=== PATIENT | male | born 1945 | race Caucasian/White ===

== ENCOUNTER 2019-10-01 12:00 | Outpatient (CLI) | payer MEDICARE, OTHER, BC, SELFPAY ==
--- NOTE | ~2019-10-01 | XR_ITS ---
EXAMINATION: XR chest 2V DATE: 10/01/2019 13:19 INDICATION: Preoperative evaluation with cardiac risk factors of hypertension. TECHNIQUE: PA and lateral views of the chest were obtained. COMPARISON: None FINDINGS: Mild biapical pleural-parenchymal scarring. Likely nipple shadow projecting over the posterolateral l eft ninth rib. No other airspace opacities, pulmonary edema, pleural effusion or pneumothorax. The ca rdiomediastinal silhouette is normal. Mild to moderate thoracic spondylosis. IMPRESSION: 1. No acute cardiopulmonary disease. Reviewed, dictated and finalized at location A.
--- NOTE | 2019-10-01 12:57 | ECG_ITS ---
Measurements Intervals [place] Rate: 59 P: 31 VA: 154 QRS: -30 QRSD: 86 T: 38 QT: 394 QTc: 393 Interpretive Statements SINUS BRADYCARDIA DELAYED PRECORDIAL R/S TRANSITION BASELINE ARTIFACT- I, III, AVR, AVL, AVF BORDERLINE ECG Electronically Signed On 10-01-2019 16:05:36 CDT by Ricci Morales D.O.
[2019-10-01 13:39] LABS: Basophils Percent Auto 0.4 % (0.2-1.2); Eosinophils Absolute Auto 0.1 K/mm3 (0-0.3); Eosinophils Percent Auto 2.5 % (0-4.4); Hematocrit 38.8 % (42.0-52.0); Hemoglobin 13.2 g/dL (14.0-18.0); Immature Granulocyte Absolute 0.02 K/mm3 (0.00-0.031); Immature Granulocyte Percent A 0.4 % (0-0.5); Lymphocytes Absolute Auto 1.13 K/mm3 (0.9-3.2); Mean Corpuscular Hemoglobin 31.1 pg (26-34); Mean Corpuscular Volume 91.5 fl (80-100); Mean Platelet Volume 9.9 fl (7.4-10.4); Monocytes Absolute Auto 0.4 K/mm3 (0.1-0.6); Monocytes Percent Auto 7.4 % (2.6-8.5); Neutrophils Absolute Auto 3.5 K/mm3 (1.3-6.7); Neutrophils Percent Auto 67.3 % (45.5-73.1); Platelet Count Result 217 k/mm3 (150-375); Red Blood Count 4.24 M/mm3 (4.6-6.20); Red Cell Distribution Width 12.8 % (11.5-14.5); White Blood Count 5.1 K/mm3 (4.5-10.0)
[2019-10-01 13:59] LABS: Albumin Level 4.1 g/dL (3.5-5.1); Anion Gap 4 mmol/L (8-16); Blood Urea Nitrogen 20 mg/dL (9-20); Carbon Dioxide 33 mmol/L (22-30); Chloride 101 mmol/L (98-107); Estimated Glomerular Filt Rate > 60; Glucose 92 mg/dL (75-110); Potassium 4.8 mmol/L (3.4-5.0); Sodium 138 mmol/L (137-145)
[2019-10-01 14:36] LABS: Hemoglobin A1C 5.1 % (<5.7)
[2019-10-01 14:38] LABS: Urine Cotinine NEGATIVE
== END 2019-10-01 12:01 | disposition home or self-care (01) ==
PROVIDERS: PCP Nurse Practitioner Adult Health; Visit Provider Orthopaedic Surgery
DX: Z01.818 Encounter for other preprocedural examination (principal); M19.90 Unspecified osteoarthritis, unspecified site; J45.909 Unspecified asthma, uncomplicated; I10 Essential (primary) hypertension; R94.31 Abnormal electrocardiogram [ECG] [EKG]
CPT/HCPCS: 71046; 80048; 80307; 82040; 83036; 85025; 87070; 93005

== ENCOUNTER 2019-10-20 00:39 | Outpatient (CLI) | payer MEDICARE, OTHER, BC, SELFPAY ==
[2019-10-20 16:40] LABS: SARS-CoV-2 RNA PCR Negative
== END 2019-10-20 00:40 | disposition home or self-care (01) ==
LOC: ANHCOVIDDT 00:40
PROVIDERS: PCP Nurse Practitioner Adult Health; Visit Provider Orthopaedic Surgery
DX: Z01.812 Encounter for preprocedural laboratory examination (principal); Z20.828 Contact with and (suspected) exposure to other viral communicable diseases
CPT/HCPCS: 87635; C9803; U0003

== ENCOUNTER 2019-10-22 02:59 | Day surgery (SDC) | payer MEDICARE, OTHER, BC, SELFPAY ==
[2019-10-01 12:09] VITALS: BP 154/87; PULSE 71; RESP 16; TEMP 36.9; O2SAT 99; BMI 23.1
--- NOTE | 2019-10-20 13:33 | PM.IMHP ---
H&P: HPI History of Present Illness Date/Time: 10/20/19 13:33 <JOSE Aviles - Last Filed: 10/20/19 13:39> Chief complaint: OA Left Knee <JOSE Aviles - Last Filed: 10/20/19 13:39> Narrative: Nikolas Nina is a 73 year old male Patient of [facility] Contre[facility]. He presents today for a left total knee arthroplasty. He is very active 73-year-old male. Typically walks 7 miles a day for exercise. He has been taking Celebrex 200 mg twice daily for many years. He has had cortisone injections in the past which have not offered him much relief. He is not interested in any more nonsurgical treatment of his knee. He has reached to point where he would rather proceed with total knee arthroplasty. He has had ACL reconstruction in this knee in the past following trauma. <JOSE Aviles - Last Filed: 10/20/19 13:39> Review of Systems Review of Systems: All systems reviewed & are unremarkable except as noted in HPI and below <JOSE Aviles - Last Filed: 10/20/19 13:39> [facility] Past Medical History Medical History: Medical History (Updated 10/22/19 @ 08:27 by Hood Lopez DO) Asthma BPH (benign prostatic hyperplasia) History of skin cancer Hypertension Osteoarthritis TMJ (temporomandibular joint syndrome) <JOSE Aviles - Last Filed: 10/20/19 13:39> Surgical History Surgical History: Surgical History (Updated 10/22/19 @ 08:27 by Hood Lopez DO) History of tonsillectomy <JOSE Aviles - Last Filed: 10/20/19 13:39> Social History Social History: Social History Smoking status: Never smoker Substance use: never Living arrangements: with family Spiritual care concerns: No <JOSE Aviles - Last Filed: 10/20/19 13:39> Meds Home Medications and Allergies Home medications: Home Medications Medication Instructions Recorded Confirmed Type azelastine 1 spray INTRANASAL HS 10/01/19 10/01/19 History celecoxib 200 mg PO BID 10/01/19 10/01/19 History finasteride 5 mg PO QAM 10/01/19 10/01/19 History fluticasone propionate [Flovent 1 inh INHALATION QAM 10/01/19 10/01/19 History Diskus] hydrocortisone [Proctosol HC] 1 applic [place] DAILY PRN 10/01/19 10/01/19 History ipratropium bromide 2 spray INTRANASAL HS 10/01/19 10/01/19 History montelukast 10 mg PO HS 10/01/19 10/01/19 History sildenafil 50 mg PO DAILY PRN 10/01/19 10/01/19 History telmisartan 40 mg PO HS 10/01/19 10/01/19 History triamcinolone acetonide 1 applic DENTAL DAILY PRN 10/01/19 10/01/19 History <JOSE Aviles - Last Filed: 10/20/19 13:39> Allergies/Adverse reactions: Allergies Allergy/AdvReac Type Severity Reaction Status Date / Time No Known Allergies Allergy Unknown Verified 10/01/19 12:12 <JOSE Aviles - Last Filed: 10/20/19 13:39> Exam Narrative: Exam Narrative: 73-year-old male very alert pleasant in no distress. He is 5 ft 10 165 lb. He has a 7 in longitudinal incision along the lateral border of the knee. Range of motion is from 5-125 degrees. Has a positive 1+ Josh's. Normal stability to varus valgus stress. Moderate effusion. No pain with patellofemoral grind. No significant medial lateral joint line tenderness. Full range motion of the hip without discomfort, negative Stinchfield maneuver. 5/5 quad strength, normal sensation, skin is normal. 2+ dorsalis pedis and posterior tibial pulse. <JOSE Aviles - Last Filed: 10/20/19 13:39> HENMT: Head: normal to inspection <JOSE Aviles Last Filed: 10/20/19 13:39> Resp: Effort & Inspection: normal respiratory effort <JOSE Aviles Last Filed: 10/20/19 13:39> Cardio: Rate: regular rate <JOSE Aviles Last Filed: 10/20/19 13:39> Rhythm: regular rhythm <JOSE Aviles - Last Filed: 10/20/19 13:39> Assessment and Plan Additional Plan Patient has severe tricompartmental arthritis
[2019-10-22] VITALS (12 sets, daily range): BP systolic 115–148; BP diastolic 64–82; PULSE 72–94; RESP 14–20; TEMP 36.1–36.7; O2SAT 95–100
--- NOTE | ~2019-10-22 | XR_ITS ---
EXAMINATION: XR knee LT 2V DATE: 10/22/2019 16:20 INDICATION: Left knee arthroplasty. Postop. TECHNIQUE: 2 views of left knee were obtained. COMPARISON: None. FINDINGS: There is a total left knee arthroplasty in near-anatomic alignment with patellar resurfacin g. No fracture. There is gas in the knee joint and soft tissues, consistent with recent surgery. IMPRESSION: 1. Total left knee arthroplasty in near-anatomic alignment. Reviewed, dictated and finalized at location A.
--- NOTE | 2019-10-22 10:04 | WPDANESEPPF ---
Anes - Initial Pre Proc Eval Procedure: Operation Date: 10/22/19 12:00 Proposed Procedures p Left Total Knee Arthroplasty - Michele Zamorano MD Date/Time: 10/22/19 10:04 Surgeon: Michele Zamorano MD Pre Op Diagnosis: OA Left Knee Patient Data Age: 73 Gender: M Height: 1.79 m Weight: 74.3 kg Last Vital Signs Temp 36.9 C 10/01/19 12:09 Pulse 71 10/01/19 12:09 Resp 16 10/01/19 12:09 BP 154/87 H 10/01/19 12:09 Pulse Ox 99 10/01/19 12:09 Allergies Allergy/AdvReac Type Severity Reaction Status Date / Time No Known Allergies Allergy Unknown Verified 10/01/19 12:12 Home Medications Medication Instructions Recorded Confirmed Type azelastine 1 spray INTRANASAL 10/01/19 10/01/19 History celecoxib 200 mg PO BID 10/01/19 10/01/19 History finasteride 5 mg PO QAM 10/01/19 10/01/19 History fluticasone propionate [Flovent 1 inh INHALATION QA 10/01/19 10/01/19 History Diskus] hydrocortisone [Proctosol HC] 1 applic [place] DAILY PRN 10/01/19 10/01/19 History ipratropium bromide 2 spray INTRANASAL 10/01/19 10/01/19 History montelukast 10 mg PO 10/01/19 10/01/19 History sildenafil 50 mg PO DAILY PRN 10/01/19 10/01/19 History telmisartan 40 mg PO HS 10/01/19 10/01/19 History triamcinolone acetonide 1 applic DENTAL DAILY PRN 10/01/19 10/01/19 History Patient hx anesthesia problems: none Family hx anesthesia problems: none PMFSH Past Medical History Medical History (Updated 10/22/19 @ 08:27 by Hood Lopez DO) Asthma BPH (benign prostatic hyperplasia) History of skin cancer Hypertension Osteoarthritis TMJ (temporomandibular joint syndrome) Surgical History Surgical History (Updated 10/22/19 @ 08:27 by Hood Lopez DO) History of tonsillectomy Social History Social History Smoking status: Never smoker Substance use: never Living arrangements: with family Spiritual care concerns: No Anes - Eval Final PreProcedure Day of Procedure 10/22/19 10:04 Patient weight: normal Heart: regular rate and rhythm Lungs: clear to auscultation and normal air movement Airway: Mallampati scale class II Neurological: alert and oriented Last oral intake: >/= 8 hours ASA classification: III Emergent: no Anesthetic plan: proceed Anesthesia type and monitoring: general ETT and standard monitoring Informed Consent: The patient's anesthetic plan and its attendant risks and benefits were discussed with the patient/family/POA. Questions were solicited and answers provided to the satisfaction of the patient/family/POA.
[2019-10-22] MEDS: ACETAMINOPHEN 500 MG TABLET 1000 MG PO ×2 (10:42→20:35)
[2019-10-22] MEDS: LACTATED RINGERS 1,000 ML 30 ML IV CONT ×2 (10:42→16:20)
[2019-10-22] MEDS: TRANEXAMIC ACID 1,000MG/ISO100 1,000 MG/100 ML BAG 200 MG IVPB (10:52)
--- NOTE | 2019-10-22 11:37 | WPDHPUPDATE1 ---
History and Physical Update Update Date/Time: 10/22/19 11:37 History and Physical has been reviewed, including an updated exam of the patient. There are NO changes in the patient's condition. Risks, benefits, and alternatives have been discussed and questions answered. Patient agrees to proceed with procedure. Abrasion well healed.
[2019-10-22] MEDS: KETOROLAC 15 MG/ML VIAL (*BKC) IV PUSH (11:45)
[2019-10-22] MEDS: ceFAZolin 2 GM/D5W 50 ML 2 GM/50 ML BAG IVPB (12:09)
--- NOTE | 2019-10-22 12:09 | PM.PROC ---
Procedure Note - Detailed Date of procedure: 10/22/19 Pre-op diagnosis: OA Left Knee Surgeon: Michele Zamorano MD
--- NOTE | 2019-10-22 12:09 | PM.PNORT ---
Progress Note: A&P Additional Plan Wiggles toes. No numbness right foot. SNU placement in progress. Subjective Subjective Date/Time Seen: 10/22/19 12:09 Objective Data Vital Signs Vital Signs: Vital Signs - 24 hr 10/22/19 11:51 Temperature 36.7 C Pulse Rate 78 Respiratory Rate 18 Blood Pressure 148/82 H Pulse Oximetry 100 Intake/Output Intake/Output: Intake & Output 10/19/19 10/20/19 10/21/19 10/22/19 23:59 23:59 23:59 23:59 Intake Total 350 Balance 350 Meds/Results Medications: Active Medications Generic Name Dose Route Start Last Admin Trade Name Freq PRN Reason Stop Dose Admin Fentanyl Citrate 25 mcg 10/22/19 10:05 Sublimaze IV PUSH Q2M PRN Pain Lactated Ringer's 1,000 mls @ 30 mls/hr 10/22/19 08:30 10/22/19 10:42 Lr - Lactated Ringers Iv IV CONT 30 mls/hr .Q24H BURKE Administration Lactated Ringer's 1,000 mls @ 30 mls/hr 10/22/19 10:05 Lr - Lactated Ringers Iv IV CONT .Q24H BURKE Ondansetron HCl 4 mg 10/22/19 10:05 Zofran Inj IV PUSH ONCE PRN Nausea Labs Labs: Laboratory Results - last 24 hr 10/22/19 10:56 Blood Type B Negative Antibody Screen Negative
[2019-10-22] MEDS: ceFAZolin SODIUM 1 GM VIAL 3 GM IRRIGATION (13:03)
[2019-10-22] MEDS: ceFAZolin SODIUM 1 GM VIAL IV PUSH (15:11)
--- NOTE | 2019-10-22 17:55 | PM.PROC ---
Procedure Note - Detailed Date of procedure: 10/22/19 Pre-op diagnosis: OA Left Knee Posttraumatic osteoarthritis left knee Post-op diagnosis: same Procedure performed: Left total knee arthroplasty Description of procedure: Patient was brought to the operating room and general anesthesia was administered. He received 2 g of Ancef weight based vancomycin and 1 g of tranexamic acid preoperatively. The left leg was prepped draped usual fashion. Under anesthesia he had range of motion from about 5? from full extension with a mildly positive bounce test to 100? of flexion. Limb was exsanguinated tourniquet elevated to 250 mmHg. A 7 in longitudinal incision was made over the anterior aspect of his knee slightly medial to midline giving us an 8 cm skin bridge from his old lateral incision. A standard parapatellar arthrotomy was utilized. Infrapatellar and suprapatellar scar tissue was removed. He had extensive scarring of the entire knee joint presumably from his prior arthrotomy. The synovium was whitish and bland. The patella was somewhat deformed due to wear. It measured 25.5 mm in thickness. There was cut to 17 mm anticipating an 8.6 mm polyethylene patella component. His bone was on the softer side for a male 73 years old and I have mentioned to his that I would recommend that after a couple weeks we schedule a bone density test for him. A protector cap was placed on the patella. We took time to mobilize the quadriceps. The gutters were freed up and a subtotal synovectomy was performed to allow full excursion of the quadriceps.. A guide jeny was inserted down the femoral canal after aspiration of canal contents using the 5 degree valgus cutting bushing 9 mm of bone removed the distal femur. Next the tibial plateau was cut making this skim cut over the medial tibial plateau that removed about 7 or 8 mm laterally. This was made perpendicular to the axis of tibia. The skim cut did not quite get to the depth of the defect which was far posterior medial and predictably would not be under the tibial tray. Osteophytes removed from around the knee. We very carefully released only enough capsule to expose the medial and posterior medial tibial osteophyte as he did not have a significant varus contracture. Osteophytes removed around the femur. The PCL was released and the meniscal remnants excised. In extension the medial side was about 2 mm tighter than the lateral side. At 90? of flexion the medial cap was a tight 8 mm and the lateral gap was 12 mm. We set the tibial sizing guide to 5? of external rotation and we found that matched [place] line exactly. Posterior referencing pin was replaced and we applied the 72.5 vanguard cutting block and AP and chamfer cuts were made and this gave us a perfect fit for this size femur line to line medial to lateral and resting on the anterior cortex. A large posterior femoral osteophyte was removed at this point as it was remarkably large and would interfere with a trialing process. Ossifications were noted in the meniscus scar medially and in the infrapatellar fat pad which we debrided as much as possible. A 10 mm CR insert slid in into flexion with a little bit of play medially and laterally so I felt we had enough tibial resection and the alignment was confirmed. The tibial component was sized to a size 79 which fit line to line anteromedial to posterolateral. This was punched. There was still a fair amount of additional posterior medial osteophyte to removed from the tibia which was performed at this time. We did this conservatively since again he did not have a significant varus contracture. We trialed with a 10 insert and found that it was a little bit loose in flexion and we lacked a few degrees in extension. We therefore removed an additional 2 mm of bone from the distal femur in the chamber cuts revisited and carefully removed bone proximal to the posterior femoral condyles of the component at this time. We
[2019-10-22] MEDS: FAMOTIDINE 20 MG TABLET PO (20:36)
[2019-10-22] MEDS: TELMISARTAN 40 MG TABLET PO (20:36)
[2019-10-22] MEDS: MONTELUKAST SODIUM 10 MG TABLET PO (20:36)
[2019-10-22] MEDS: AZELASTINE HCL NASAL 0.1% 137 MCG/SPR 30 ML BTL 1 SPRAY NASAL (20:36)
[2019-10-22] MEDS: IPRATROPIUM NASAL SPRAY 0.06% 15 ML BOTTLE 2 SPRAY NASAL (20:37)
[2019-10-23] MEDS: SENNA/DOCUSATE SODIUM TABLET 2 TAB PO ×2 (00:06→08:59)
[2019-10-23] MEDS: oxyCODONE HCL (*CRX) 5 MG TAB IR PO ×3 (00:07→10:07)
[2019-10-23] MEDS: ACETAMINOPHEN 500 MG TABLET 1000 MG PO ×2 (02:03→08:58)
[2019-10-23 03:20] VITALS: BP 126/61; PULSE 73; RESP 20; TEMP 36.7; O2SAT 98
[2019-10-23 05:45] LABS: Add Urine Microscopic? YES; Appearance Urine Clear (Clear); Bilirubin Urine Negative (Negative); Blood Urine 1+ (Negative); Color Urine Straw (Yellow); Glucose Urine UA 3+ mg/dL (Negative); Ketones Urine Negative (Negative); Leukocyte Esterase Ur Negative LEU/UL (Negative); Mucus Urine Rare /lpf; Nitrate Urine Negative (Negative); Protein Urine Negative (Negative); Specific Grav Ur 1.011 (1.001-1.035); Squamous Epithelial Cell Urine Rare /hpf (Few); Urobilinogen Urine Negative mg/dL (<2.0)
[2019-10-23 05:53] LABS: Basophils Percent Auto 0.1 % (0.2-1.2); Eosinophils Percent Auto 0.3 % (0-4.4); Hematocrit 31.2 % (42.0-52.0); Hemoglobin 10.6 g/dL (14.0-18.0); Immature Granulocyte Absolute 0.05 K/mm3 (0.00-0.031); Immature Granulocyte Percent A 0.5 % (0-0.5); Lymphocytes Absolute Auto 0.87 K/mm3 (0.9-3.2); Lymphocytes Percent Auto 8.6 % (18.3-44.2); Mean Corpuscular Hemoglobin 31.1 pg (26-34); Mean Corpuscular Volume 91.5 fl (80-100); Mean Platelet Volume 10.1 fl (7.4-10.4); Monocytes Absolute Auto 0.6 K/mm3 (0.1-0.6); Monocytes Percent Auto 5.8 % (2.6-8.5); Neutrophils Absolute Auto 8.6 K/mm3 (1.3-6.7); Neutrophils Percent Auto 84.7 % (45.5-73.1); Platelet Count Result 209 k/mm3 (150-375); Red Blood Count 3.41 M/mm3 (4.6-6.20); Red Cell Distribution Width 12.3 % (11.5-14.5); White Blood Count 10.1 K/mm3 (4.5-10.0)
[2019-10-23 05:56] LABS: Anion Gap 1 mmol/L (8-16); Blood Urea Nitrogen 16 mg/dL (9-20); Calcium 8.4 mg/dL (8.4-10.2); Carbon Dioxide 29 mmol/L (22-30); Chloride 105 mmol/L (98-107); Estimated CRCL calculation 73 ml/min; Estimated Glomerular Filt Rate > 60; Glucose 122 mg/dL (75-110); Sodium 135 mmol/L (137-145)
[2019-10-23 06:29] LABS: Vitamin D 25 Hydroxy 31.7 ng/mL
--- NOTE | 2019-10-23 07:13 | PM.PNORT ---
Progress Note: A&P Additional Plan POD 1 alert min pain min. NVI wd-dry. has not been out of bed yet, was having some burning with urination-UA sent-neg, poss from florez cath during surg. labs-noted, pt doing very well, plan for him to do both PT sessions then home this afternoon Subjective Subjective Date/Time Seen: 10/23/19 07:13 Objective Data Vital Signs Vital Signs: Vital Signs - 24 hr 10/22/19 11:51 10/22/19 16:20 10/22/19 16:35 Temperature 36.7 C 36.1 C L Pulse Rate 78 94 94 Respiratory Rate 18 16 16 Blood Pressure 148/82 H 115/76 123/74 Pulse Oximetry 100 100 100 10/22/19 16:50 10/22/19 17:05 10/22/19 17:20 Temperature Pulse Rate 91 87 84 Respiratory Rate 18 14 14 Blood Pressure 129/75 132/80 135/80 Pulse Oximetry 100 96 95 10/22/19 17:32 10/22/19 17:35 10/22/19 17:50 Temperature 36.3 C L 36.3 C L Pulse Rate 85 83 84 Respiratory Rate 16 15 17 Blood Pressure 141/70 H 136/65 139/74 Pulse Oximetry 95 98 99 10/22/19 18:20 10/22/19 19:20 10/22/19 23:20 Temperature 36.5 C 36.5 C 36.3 C L Pulse Rate 73 76 72 Respiratory Rate 19 20 20 Blood Pressure 138/67 131/65 129/64 Pulse Oximetry 98 99 99 10/23/19 03:20 Temperature 36.7 C Pulse Rate 73 Respiratory Rate 20 Blood Pressure 126/61 Pulse Oximetry 98 Intake/Output Intake/Output: Intake & Output 10/20/19 10/21/19 10/22/19 10/23/19 23:59 23:59 23:59 23:59 Intake Total 550 640 Output Total 575 Balance 550 65 Meds/Results Medications: Active Medications Generic Name Dose Route Start Last Admin Trade Name Freq PRN Reason Stop Dose Admin Acetaminophen 1,000 mg 10/22/19 20:00 10/23/19 02:03 Tylenol Tablet PO 1,000 mg Q6H BURKE Administration Apixaban 2.5 mg 10/23/19 09:00 Eliquis PO 11/03/19 17:01 BID BURKE Azelastine HCl 1 spray 10/22/19 21:00 10/22/19 20:36 Astelin NASAL 1 spray HS [facility] Administration Bisacodyl 10 mg 10/22/19 17:35 Dulcolax Suppository RECTAL DAILY PRN Constipation Calcium Citrate 1 tablet 10/23/19 09:00 Calcitrate + Vit D Caplet PO BID [facility] Celecoxib 200 mg 10/23/19 08:00 Celebrex PO DAILY@0800 [facility] Diphenhydramine HCl 25 mg 10/22/19 17:35 Benadryl Inj IV PUSH Q6H PRN Itching Famotidine 20 mg 10/22/19 21:00 10/22/19 20:36 Pepcid PO 20 mg Q12HR [facility] Administration Finasteride 5 mg 10/23/19 09:00 Proscar PO QAM [facility] Cefazolin Sodium 1 gm in 50 mls @ 100 mls/hr 10/22/19 20:00 10/23/19 04:21 Ancef 1 Gm/D5w 50 Ml Pm IVPB 10/23/19 12:29 100 mls/hr Q8H BURKE Administration Vancomycin HCl 1,000 mg in 250 mls @ 250 mls/hr 10/23/19 00:00 10/23/19 01:24 Vancomycin 1,000 Mg/D5w 250 Ml IVPB 10/23/19 12:59 Infused Q12H [facility] Infusion Ipratropium [place] 2 spray 10/22/19 21:00 10/22/19 20:37 Atrovent Nasal [place] 0.06% NASAL 2 spray HS [facility] Administration Montelukast Sodium 10 mg 10/22/19 21:00 10/22/19 20:36 Singulair PO 10 mg HS [facility] Administration Morphine Sulfate 2 mg 10/22/19 17:35 Morphine Sulfate Inj (*Crx) IV PUSH Q2H PRN Breakthrough pain rated 4-6 Naloxone HCl 0.1 mg 10/22/19 17:35 Narcan IV PUSH Q2M PRN Opiate Reversal Non-Formulary Medication 1 inhalation 10/23/19 09:00 Fluticasone Propionate [Flovent Diskus] INHALATION 11/22/19 09:01 QAM [facility] Ondansetron HCl 4 mg 10/22/19 17:35 Zofran Inj IV PUSH Q4H PRN Nausea And Vomiting Oxycodone HCl 5 mg 10/22/19 17:35 10/23/19 05:56 Roxicodone Ir Tablet PO 5 mg Q4H [facility] Administration Oxycodone HCl 5 mg 10/22/19 17:35 Roxicodone Ir Tablet PO Q4HR PRN Pain Rated 4-6 Polyethylene Glycol 17 gm 10/23/19 09:00 Miralax PO QAM [facility] Senna/Docusate Sodium 2 tab 10/22/19 17:35 10/23/19 00:06 Senokot S Tablet PO 2 tab BID [facility] Administration Telmisartan 40 mg 10/22/19 21:00 10/22/19 20:36 Micardis
--- NOTE | 2019-10-23 07:18 | PM.DS ---
DS: Admitting Diagnosis Admitting Diagnosis Admitting Diagnosis: OA Left Knee DS: Summary Time Spent with Patient Time attestation: 73-year-old male who underwent left total knee arthroplasty by Dr. Zamorano on 10/21. underwent the procedure without complications.postoperatively been afebrile vital signs stable, neurovascularly he is intact his wound is dry and has a Mepilex dressing over top. Had some burning with urination immediately postop which was most likely the Rao catheter placement had urinalysis done which was negative. he is on Eliquis follow-up baby aspirin twice a day for DVT prophylaxis. On scheduled Tylenol as well as oxycodone 5 pain also on Celebrex once a day. He will be on MiraLax and Senokot for constipation as well. Patient is weight-bearing as tolerated. He will be discharged to home later today on 10/22. Patient was advised to keep the leg elevated for swelling knee but also to his exercises on regular basis. He has outpatient physical therapy starting next Sunday in our office. Patient was advised any questions or concerns once he goes home he should call the office otherwise see him at his appointment date. DS: Data Data Completed and Pending Labs on day of discharge: Labs from last 24 hours 10/23/19 10/23/19 10/23/19 05:24 05:24 05:24 WBC 10.1 H RBC 3.41 L Hgb 10.6 L Hct 31.2 L MCV 91.5 MCH 31.1 MCHC 34.0 RDW 12.3 Plt Count 209 MPV 10.1 Immature Gran % (Auto) 0.5 Neut % (Auto) 84.7 H Lymph % (Auto) 8.6 L [place] % (Auto) 5.8 Eos % (Auto) 0.3 Baso % (Auto) 0.1 L Lymph # (Auto) 0.87 L [place] # (Auto) 0.6 Eos # (Auto) 0.0 Baso # (Auto) 0.0 Abs Immat Gran (auto) 0.05 H Absolute Neuts (auto) 8.6 H Absolute Nucleated RBC 0.0 Nucleated RBC % 0.0 Sodium 135 L Potassium 4.0 Chloride 105 Carbon Dioxide 29 Anion Gap 1 L BUN 16 Creatinine 0.80 Estim Creat Clear Calc 73 Estimated GFR > 60 Glucose 122 H Calcium 8.4 Vitamin D 25-Hydroxy 31.7 Urine Color Urine Appearance Urine pH Ur Specific [place] Urine Protein Urine Glucose (UA) Urine Ketones Ur Blood (Man) Urine Nitrate Urine Bilirubin Urine Urobilinogen Leukocyte Esterase Rfl Urine RBC Urine WBC Ur Squamous Epith Cells Urine Mucus Blood Type Antibody Screen 10/23/19 10/22/19 05:23 10:56 WBC RBC Hgb Hct MCV MCH MCHC RDW Plt Count MPV Immature Gran % (Auto) Neut % (Auto) Lymph % (Auto) B[place]so[place] % (Auto) Eos % (Auto) Baso % (Auto) Lymph # (Auto) [place] # (Auto) Eos # (Auto) Baso # (Auto) Abs Immat Gran (auto) Absolute Neuts (auto) Absolute Nucleated RBC Nucleated RBC % Sodium Potassium Chloride Carbon Dioxide Anion Gap BUN Creatinine Estim Creat Clear Calc Estimated GFR Glucose Calcium Vitamin D 25-Hydroxy Urine Color Straw Urine Appearance Clear Urine pH 6.0 Ur Specific [place] 1.011 Urine Protein Negative Urine Glucose (UA) 3+ H Urine Ketones Negative Ur Blood (Man) 1+ H Urine Nitrate Negative Urine Bilirubin Negative Urine Urobilinogen Negative Leukocyte Esterase Rfl Negative Urine RBC 3-5 H Urine WBC 4-6 H Ur Squamous Epith Cells Rare Urine Mucus Rare Blood Type B Negative Antibody Screen Negative Discharge Plan Discharge Patient Disposition: Home, Self-Care Discharge Instructions: ROSY ZAMORANO M.D [facility], [address] [address] POST-OPERATIVE DISCHARGE INSTRUCTIONS TOTAL KNEE ARTHROPLASTY 1. When resting, lie on back with leg elevated above hear to minimize swelling. Significant swelling could indicate a blood clot and if this occurs call the office (or go to the ER) to have a venous ultrasound. 2. Do exercise 5 times a day. 3. Do not sit w
[2019-10-23] MEDS: FINASTERIDE 5 MG TABLET PO (08:58)
[2019-10-23] MEDS: FAMOTIDINE 20 MG TABLET PO (08:58)
[2019-10-23] MEDS: APIXABAN 2.5 MG TABLET PO (08:59)
[2019-10-23] MEDS: polyethylene glycoL 3350 17 GM POWD.PACK PO (08:59)
[2019-10-23] MEDS: CELECOXIB 200 MG CAPSULE PO (08:59)
[2019-10-23 10:00] VITALS: BP 141/69; PULSE 73; RESP 14; TEMP 36.7; O2SAT 100
--- NOTE | 2019-10-23 10:54 | PM.IMCN ---
Assessment and Plan Assessment and plan (1) History of total knee arthroplasty: Code(s): Z96.659 - Presence of unspecified artificial knee joint Status: Acute Assessment and Plan: Postop day [address] Zamorano. Doing physical and occupational therapy well. Further evaluation and discharge by Orthopedic surgery. Cleared for discharge from my standpoint. (2) Dysuria: Code(s): R30.0 - Dysuria Status: Acute Assessment and Plan: Patient had dysuria after his surgery most likely from his Rao catheter. He is not having any other urinary symptoms but continues have some dysuria. UA showed no acute infection at this time. Explained to the patient could be from the trauma of the Rao and it should slowly improve over the next few days. Told him if it does not improve and he has changes in his urinary symptoms he is to calls primary care may need another urinalysis or follow-up with his urologist. Patient understands agrees the plan all questions answered. (3) BPH (benign prostatic hyperplasia): Code(s): N40.0 - Benign prostatic hyperplasia without lower urinary tract symptoms Status: Acute Assessment and Plan: Continue his BPH medications. (4) Hypertension: Code(s): I10 - Essential (primary) hypertension Status: Acute Assessment and Plan: Blood pressure has been stable since surgery. Continue medications. (5) Osteoarthritis: Code(s): M19.90 - Unspecified osteoarthritis, unspecified site Status: Acute Assessment and Plan: Continue medications prescribed by orthopedic surgery. HPI Data of Consult Consult date: 10/23/19 Requesting Physician: Michele Zamorano MD Primary Care Provider: Lindsey Contreras, PASSENGER SERVICE REPRESENTATIVE Consult Narrative Narrative: Nikolas Nina is a 73 year old male with history of BPH, hypertension, who presented as an outpatient for a left total knee arthroplasty by Dr. Zamorano. The patient was admitted after his surgery for continued monitoring and physical and occupational therapy. The patient states he has been dealing with left knee problems for years and has been gradually worsening. he has been on multiple medications to help with over time. He finally talked his primary care provider about seen an certified legal secretary specialist. He states Dr. Zamorano ordered x-rays on him and based on the results he offered to have a left total knee arthroplasty. The patient states after his surgery yesterday he was having some dysuria which has continued. He has not noticed any blood in his urine, urinary retention, frequent urination or any other symptoms. Is most likely secondary to his Rao catheter that was placed during surgery. A urinalysis was completed which showed no acute signs of an infection. He otherwise denies any chest pain, shortness of breath, cough, fever, chills, nausea, vomiting, abdominal pain, diarrhea, constipation, leg swelling, calf pain, lightheadedness, dizziness, headache, or any other symptoms at this time. Review of Systems Review of Systems: All systems reviewed & are unremarkable except as noted in HPI and below PMFSH Past Medical History Medical History (Updated 10/23/19 @ 16:12 by Cat Barnes PA-C) Asthma BPH (benign prostatic hyperplasia) History of skin cancer Hypertension Osteoarthritis TMJ (temporomandibular joint syndrome) Surgical History Surgical History (Updated 10/23/19 @ 16:09 by Cat Barnes PA-C) History of tonsillectomy Hx of total knee arthroplasty Social History Social History (Updated 10/23/19 @ 16:09 by Cat Barnes PA-C) Smoking status: Never smoker Alcohol intake: current Drinks per week: 2 Substance use: never Sub
--- NOTE | 2019-10-23 10:59 | PCOTNOTE ---
On 10/23/19, the student, Lona Delgado, provided care and [facility]. I have reviewed the student's documentation and agree with the findings.
--- NOTE | 2019-10-23 11:03 | WPDANESPN ---
Anes - Prog Note Post-Op Date/Time: 10/23/19 11:03 Cardiovascular status: normal Respiratory status: normal Airway patency: baseline Mental status: baseline Post-Op hydration status: normal Vital Signs: Last Vital Signs Temp 36.7 C 10/23/19 10:00 Pulse 73 10/23/19 10:00 Resp 14 10/23/19 10:00 BP 141/69 H 10/23/19 10:00 Pulse Ox 100 10/23/19 10:00 Pain Score (VAS): 4 I/O: Intake & Output 10/22/19 10/23/19 10/23/19 23:59 07:59 15:59 Intake Total 150 640 240 Output Total 575 Balance 150 65 240 Laboratory Tests 10/23/19 05:24 10/23/19 05:24 10/22/19 10/23/19 10/23/19 10:56 05:23 05:24 WBC RBC Hgb Hct MCV MCH MCHC RDW Plt Count MPV Immature Gran % (Auto) Neut % (Auto) Lymph % (Auto) [place] % (Auto) Eos % (Auto) Baso % (Auto) Lymph # (Auto) [place] # (Auto) Eos # (Auto) Baso # (Auto) Abs Immat Gran (auto) Absolute Neuts (auto) Absolute Nucleated RBC Nucleated RBC % Sodium Potassium Chloride Carbon Dioxide Anion Gap BUN Creatinine Estim Creat Clear Calc Estimated GFR Glucose Calcium Vitamin D 25-Hydroxy 31.7 Urine Color Straw Urine Appearance Clear Urine pH 6.0 Ur Specific [place] 1.011 Urine Protein Negative Urine Glucose (UA) 3+ H Urine Ketones Negative Ur Blood (Man) 1+ H Urine Nitrate Negative Urine Bilirubin Negative Urine Urobilinogen Negative Leukocyte Esterase Rfl Negative Urine RBC 3-5 H Urine WBC 4-6 H Ur Squamous Epith Cells Rare Urine Mucus Rare Blood Type B Negative Antibody Screen Negative 10/23/19 10/23/19 05:24 05:24 WBC 10.1 H RBC 3.41 L Hgb 10.6 L Hct 31.2 L MCV 91.5 MCH 31.1 MCHC 34.0 RDW 12.3 Plt Count 209 MPV 10.1 Immature Gran % (Auto) 0.5 Neut % (Auto) 84.7 H Lymph % (Auto) 8.6 L [place] % (Auto) 5.8 Eos % (Auto) 0.3 Baso % (Auto) 0.1 L Lymph # (Auto) 0.87 L [place] # (Auto) 0.6 Eos # (Auto) 0.0 Baso # (Auto) 0.0 Abs Immat Gran (auto) 0.05 H Absolute Neuts (auto) 8.6 H Absolute Nucleated RBC 0.0 Nucleated RBC % 0.0 Sodium 135 L Potassium 4.0 Chloride 105 Carbon Dioxide 29 Anion Gap 1 L BUN 16 Creatinine 0.80 Estim Creat Clear Calc 73 Estimated GFR > 60 Glucose 122 H Calcium 8.4 Vitamin D 25-Hydroxy Urine Color Urine Appearance Urine pH Ur Specific [place] Urine Protein Urine Glucose (UA) Urine Ketones Ur Blood (Man) Urine Nitrate Urine Bilirubin Urine Urobilinogen Leukocyte Esterase Rfl Urine RBC Urine WBC Ur Squamous Epith Cells Urine Mucus Blood Type Antibody Screen Post-procedural complaints: none Patient Feedback: Patient satisfied with anesthetic care.
== END 2019-10-23 14:01 | disposition home or self-care (01) ==
LOC: ANHSURGERY 10:14 → ANH2MED 17:37
PROVIDERS: Family Medicine; Physician Assistant Surgical; PCP Nurse Practitioner Adult Health; Visit Provider Orthopaedic Surgery
PROC: (CPT 27447; principal; 2019-10-22 12:00)
DX: M17.12 Unilateral primary osteoarthritis, left knee (principal); R30.0 Dysuria; N40.0 Benign prostatic hyperplasia without lower urinary tract symptoms; I10 Essential (primary) hypertension; J45.909 Unspecified asthma, uncomplicated
CPT/HCPCS: 27447; 36415; 73560; 80048; 81001; 82306; 85025; 86850; 86900; 86901; 97110; 97116; 97161; 97165; A9270; C1713; C1776; J0171; J0690; J1100; J1885; J2270; J2405; J2704; J2795; J3010; J3370; J7120

== ENCOUNTER 2019-12-24 09:00 | Outpatient (CLI) | payer MEDICARE, OTHER, BC, SELFPAY ==
--- NOTE | ~2019-12-24 | DEXA_ITS ---
Bone Density Report Name: Nikolas Nina Age: 74 Sex: Male Ethnicity: White Date of : 1945 Indication: cancer; asthma or emphysema;osteopenia on x-ray Referring Provider: ROSY COLEY Study: Bone densitometry was performed. Exam Date: December 24, 2019 Accession number: [id number] Bone Density: Region BMD T-score Z-score Classification AP Spine (L1-L4) 1.254 1.5 2.5 Normal Femoral Neck (Left) 0.702 -1.7 -0.4 Osteopenia Total Hip (Left) 0.944 -0.6 0.2 Normal Total Hip Bilateral Avg 0.958 -0.5 0.3 Normal Femoral Neck (Right) 0.813 -0.9 0.4 Normal Total Hip (Right) 0.971 -0.4 0.4 Normal World Health Organization criteria for BMD impression classify patients as: Normal (T-score at or above -1.0), Osteopenia (T-score between -1.0 and -2.5), or Osteoporosis (T-score at or below -2.5). 10-year Fracture Risk(1): Major Osteoporotic Fracture 6.7% Hip Fracture 2.0% Reported Risk Factors: [place] (), Neck BMD=0.702, BMI=23.3 (1) FRAX(R) Version 3.08. Fracture probability calculated for an untreated patient. Fracture probability may be lower if the patient has received treatment. Clinical Information Provided by Patient: Has used the following medications: Calcium Has the following medical conditions: Asthma or Emphysema, Cancer Patient maximum height was 72 Drinks caffeinated beverages Impression: The patient has low bone mass, based on the Left Femoral Neck T-score. The patient has an estimated ten-year risk of hip fracture of 2% and an estimated ten-year risk of major fracture of 6.7%, based on the WHO FRAX algorithm. Discussion: BONE DENSITY IS LOW AT ONE OR MORE SKELETAL SITES. This patient's lowest T-score is low at one or more skeletal sites. It meets the World Health Organization's (WHO) criteria for ?low bone mass? (T-score between -1.0 and -2.5). The patient's 10-year risk of fracture as calculated by FRAX is less than the threshold where pharmacological therapy is recommended by the National Osteoporosis Foundation (NOF). However, all treatment decisions require clinical judgment and consideration of individual patient factors, including patient preferences, comorbidities, previous drug use, risk factors not captured in the FRAX model (e.g., frailty, falls, vitamin D deficiency, increased bone turnover, interval significant decline in bone density) and possible under or overestimation of fracture risk by FRAX. The patient should follow a healthful lifestyle (good nutrition with adequate calcium and vitamin D, and appropriate weight-bearing exercise). Follow-Up: Consider repeating this study in 2 to 3 years to reassess this patient's status, or sooner if there is some new clinical indication. Reported by: [facility] on 12/24/2019 9:24:00 AM.
== END 2019-12-24 09:01 | disposition home or self-care (01) ==
PROVIDERS: PCP Nurse Practitioner Adult Health; Visit Provider Orthopaedic Surgery
DX: M85.852 Other specified disorders of bone density and structure, left thigh (principal)
CPT/HCPCS: 77080

== ENCOUNTER 2020-02-23 11:30 | Outpatient (NON) | payer MEDICARE, BC, OTHER, SELFPAY ==
[2020-02-23 21:25] LABS: SARS-CoV-2 RNA PCR Positive
== END 2020-02-23 11:31 ==
PROVIDERS: PCP Nurse Practitioner Adult Health; Visit Provider Family Medicine
DX: U07.1 COVID-19 (principal)
CPT/HCPCS: C9803; U0003; U0005

== ENCOUNTER → 2020-06-05 01:24 | Outpatient (CLI) | payer MEDICARE, BC, OTHER, SELFPAY ==
[2020-06-05 19:16] LABS: SARS-CoV-2 RNA PCR Negative
== END ==
PROVIDERS: PCP Nurse Practitioner Adult Health; Visit Provider Otolaryngology
DX: Z01.812 Encounter for preprocedural laboratory examination (principal); Z20.822 Contact with and (suspected) exposure to COVID-19
CPT/HCPCS: C9803; U0003; U0005

== ENCOUNTER 2020-06-08 00:50 | Day surgery (SDC) | payer MEDICARE, BC, OTHER, SELFPAY ==
[2020-06-02 11:26] VITALS: BMI 24.4
--- NOTE | 2020-06-07 06:37 | PM.HPGS ---
History of Present Illness History of Present Illness Consent: Risks, benefits, and alternatives have been discussed and questions answered. Patient agrees to proceed with procedure. Chief complaint: nasal septal deviation Narrative: Nikolas Nina is a 74 year old male With a chief complaint of inability to breathe out of his nose he has a markedly deviated septum Review of Systems Review of Systems: All systems reviewed & are unremarkable except as noted in HPI and below PMFSH Past Medical History Medical History Asthma BPH (benign prostatic hyperplasia) History of skin cancer Hypertension Osteoarthritis TMJ (temporomandibular joint syndrome) Surgical History Surgical History History of tonsillectomy Hx of total knee arthroplasty Social History Social History Smoking status: Never smoker Second hand tobacco smoke exposure: No Alcohol intake: current Drinks per week: 2 Substance use: never Substance use type: does not use Gender identity (if verbalized by the patient): Male Spiritual care concerns: No Meds Home Medications and Allergies Home Medications Medication Instructions Recorded Confirmed Type Flovent Diskus 1 inh INHALATION QAM 10/01/19 06/02/20 History azelastine 1 spray INTRANASAL 10/01/19 06/02/20 History finasteride 5 mg PO QAM 10/01/19 06/02/20 History hydrocortisone [Proctosol HC] 1 applic CA DAILY PRN 10/01/19 06/02/20 History ipratropium bromide 2 spray INTRANASAL 10/01/19 06/02/20 History montelukast 10 mg PO 10/01/19 06/02/20 History sildenafil 50 mg PO DAILY PRN 10/01/19 06/02/20 History telmisartan [Micardis] 40 mg PO 10/01/19 06/02/20 History triamcinolone acetonide 1 applic DENTAL DAILY PRN 10/01/19 06/02/20 History albuterol sulfate 2 inh INHALATION Q4-6H PRN 06/02/20 06/02/20 History ascorbic acid (vitamin C) [Vitamin 1 g PO DAILY 06/02/20 06/02/20 History C] celecoxib [Celebrex] 200 mg PO BID 06/02/20 06/02/20 History omega-3 fatty acids-vitamin E 1 cap QAM 06/02/20 06/02/20 History [Fish Oil] Allergies Allergy/AdvReac Type Severity Reaction Status Date / Time No Known Allergies Allergy Unknown Verified 10/22/19 11:49 Exam Narrative: Exam Narrative: chest clear heart rhythm murmurs abdomen soft strange negative septum deviated markedly obstruction Assessment and Plan Additional Plan plan is a septoplasty
[2020-06-08] VITALS (7 sets, daily range): BP systolic 116–152; BP diastolic 72–85; PULSE 71–78; RESP 9–20; TEMP 36–36.1; O2SAT 98–100
--- NOTE | 2020-06-08 06:01 | WPDHPUPDATE1 ---
History and Physical Update Update Date/Time: 06/08/20 06:01 History and Physical has been reviewed, including an updated exam of the patient. There are NO changes in the patient's condition. Risks, benefits, and alternatives have been discussed and questions answered. Patient agrees to proceed with procedure.
--- NOTE | 2020-06-08 06:39 | P.PNAN_ITS ---
Anes - Initial Pre Proc Eval Procedure: Operation Date: 06/08/20 07:30 Proposed Procedures p Septoplasty, - Isaias Li MD s Bilateral Inferior Turbinectomy - Isaias Li MD Date/Time: 06/08/20 06:39 Surgeon: Isaias Li MD Pre Op Diagnosis: nasal septal deviation Patient Data Age: 74 Gender: M Height: 1.8 m Weight: 79.54 kg Allergies Allergy/AdvReac Type Severity Reaction Status Date / Time No Known Allergies Allergy Unknown Verified 10/22/19 11:49 Home Medications Medication Instructions Recorded Confirmed Type Flovent Diskus 1 inh INHALATION QAM 10/01/19 06/02/20 History azelastine 1 spray INTRANASAL HS 10/01/19 06/02/20 History finasteride 5 mg PO QAM 10/01/19 06/02/20 History hydrocortisone [Proctosol HC] 1 applic NC DAILY PRN 10/01/19 06/02/20 History ipratropium bromide 2 spray INTRANASAL HS 10/01/19 06/02/20 History montelukast 10 mg PO HS 10/01/19 06/02/20 History sildenafil 50 mg PO DAILY PRN 10/01/19 06/02/20 History telmisartan [Micardis] 40 mg PO HS 10/01/19 06/02/20 History triamcinolone acetonide 1 applic DENTAL DAILY PRN 10/01/19 06/02/20 History albuterol sulfate 2 inh INHALATION Q4-6H PRN 06/02/20 06/02/20 History ascorbic acid (vitamin C) [Vitamin 1 g PO DAILY 06/02/20 06/02/20 History C] celecoxib [Celebrex] 200 mg PO BID 06/02/20 06/02/20 History omega-3 fatty acids-vitamin E 1 cap QAM 06/02/20 06/02/20 History [Fish Oil] Patient hx anesthesia problems: none Family hx anesthesia problems: none PMFSH Past Medical History Medical History Asthma BPH (benign prostatic hyperplasia) History of skin cancer Hypertension Osteoarthritis TMJ (temporomandibular joint syndrome) Surgical History Surgical History History of tonsillectomy Hx of total knee arthroplasty Social History Social History Smoking status: Never smoker Second hand tobacco smoke exposure: No Alcohol intake: current Drinks per week: 2 Substance use: never Substance use type: does not use Living arrangements: with family Gender identity (if verbalized by the patient): Male Spiritual care concerns: No Anes - Eval Final PreProcedure Day of Procedure 06/08/20 06:39 Patient weight: normal Heart: regular rate and rhythm Lungs: clear to auscultation and normal air movement Airway: Mallampati scale class II Neurological: alert and oriented Last oral intake: >/= 8 hours ASA classification: III Emergent: no Anesthetic plan: proceed Anesthesia type and monitoring: general ETT and standard monitoring Informed Consent: The patient's anesthetic plan and its attendant risks and mauri efits were discussed with the patient/family/POA. Questions were solicited and answers provided to the satisfaction of the patient/family/POA.
[2020-06-08] MEDS: ACETAMINOPHEN 500 MG TABLET 1000 MG PO (06:57)
[2020-06-08] MEDS: LACTATED RINGERS 1,000 ML 30 ML IV CONT (06:58)
[2020-06-08] MEDS: LIDO 1%/EPINEPHRINE 1:100,000 50 ML VIAL INFILTRATE (07:44)
[2020-06-08] MEDS: COCAINE HCL (*CRX) 4% TOP SOLN 4 ML VIAL 1 APPLIC TOPICAL (07:45)
--- NOTE | 2020-06-08 08:03 | PM.PROC ---
Procedure Note - Detailed Date of procedure: 06/08/20 Pre-op diagnosis: nasal septal deviation Post-op diagnosis: same Procedure performed: Septoplasty and bilateral inferior turbinectomy Description of procedure: Patient was prepped and draped in usual fashion after general anesthesia. The nose was injected with xylocaine with Adrenalin and packed with Neosporin Keith-Synephrine on cottonoids. A [] leann transfixation was made anterior and posterior tunnel was elevated. The bony cartilage junction . The bony deviation was removed in its entirety. Swung the cardilege and bone to the midline nose open on both sides. The nose was then packed with Surgicel patient awakened returned to recovery good condition. Stab wounds were then made both inferior turbinectomies with a micro debrider tissue was reduced in size and the a inferior turbinates were outfractured Anesthesia: GLMA and GETA Surgeon: Isaias Li MD Estimated blood loss (mL): 10 Drains: No Packing: No Complications: No immediate complications Condition: stable Disposition: same day Findings: Turbinate hypertrophy and septal deviation
== END 2020-06-08 10:00 | disposition home or self-care (01) ==
PROVIDERS: PCP Nurse Practitioner Adult Health; Visit Provider Otolaryngology
PROC: (CPT 30520; principal; 2020-06-08 07:30)
PROC: (CPT 30520; 2020-06-08 07:30)
DX: J34.2 Deviated nasal septum (principal); I10 Essential (primary) hypertension; J45.909 Unspecified asthma, uncomplicated; N40.0 Benign prostatic hyperplasia without lower urinary tract symptoms; Z85.828 Personal history of other malignant neoplasm of skin
CPT/HCPCS: 30520; 30130; A9270; C9803; J0330; J2405; J2704; J3010; J7120; U0003; U0005

== ENCOUNTER 2021-07-11 18:47 | Emergency (ER) | payer MEDICARE, OTHER, SELFPAY ==
--- NOTE | ~2021-07-11 | XR_ITS ---
EXAMINATION: XR chest 1V portable DATE: 07/11/2021 19:09 INDICATION: Stroke. Right facial weakness. Slurred speech. TECHNIQUE: A single frontal view of the chest was obtained. COMPARISON: Chest 2 views 10/01/2019 FINDINGS: The chest demonstrates clear lungs without pneumonia, pleural effusion, or pneumothorax. Th e heart size is normal. IMPRESSION: 1. No acute cardiopulmonary disease. Reviewed, dictated and finalized at location E.
[2021-07-11 18:56] VITALS: BP 200/96; PULSE 73; RESP 18; TEMP 36.3; O2SAT 96
--- NOTE | 2021-07-11 18:59 | ECG_ITS ---
Measurements Intervals [place] Rate: 73 P: 33 MN: 151 QRS: -37 QRSD: 95 T: 53 QT: 384 QTc: 425 Interpretive Statements SINUS RHYTHM LEFT AXIS DEVIATION [QRS AXIS < -30] COMPARED TO ECG 10/01/2019 13:28:16 SINUS RHYTHM NOW PRESENT LEFT-AXIS DEVIATION NOW PRESENT Electronically Signed On 07-11-2021 21:18:52 CDT by Emerald Tyler MD
--- NOTE | 2021-07-11 19:11 | ED.NEUROSD ---
HPI - Neuro Symptoms/Deficit General Chief Complaint: Neuro Symptoms/Deficit Stated Complaint: facial drooping since 0700 Time Seen by Provider: 07/11/21 19:01 Source: patient History of Present Illness HPI Narrative: Patient ports facial drooping on the right side since about 7:00 this morning. Last night his eye was draining a little bit. Did not think much of it today when he was walking he tried to spit and said it was very difficult for him he looked at his face and noticed some asymmetry so he came to the ER for evaluation. Denies any trauma or injury denies any recent, cough, congestion, fevers, chills. Denies any headaches or numbness denies any change in vision or blurry vision denies any weakness or numbness in his extremities denies any lightheadedness or dizziness. Related Data Home Medications Medication Instructions Recorded Confirmed azelastine 137 mcg (0.1 %) nasal 1 spray intranasal HS 10/01/19 06/08/20 spray aerosol finasteride 5 mg tablet 5 mg PO QAM 10/01/19 06/08/20 fluticasone propionate 250 1 inh inhalation QAM 10/01/19 06/08/20 mcg/actuation blister powder for inhalation (Flovent Diskus) hydrocortisone 2.5 % topical cream 1 applic RECTAL DAILY PRN 10/01/19 06/08/20 with perineal applicator Hemorrhoids (Proctosol HC) ipratropium bromide 42 mcg (0.06 2 spray intranasal HS 10/01/19 06/08/20 %) nasal spray montelukast 10 mg tablet 10 mg PO HS 10/01/19 06/08/20 sildenafil 50 mg tablet 50 mg PO DAILY PRN Erectile 10/01/19 06/08/20 Dysfunction telmisartan 40 mg tablet (Micardis) 40 mg PO HS 10/01/19 06/08/20 triamcinolone acetonide 0.1 % 1 applic dental DAILY PRN Mouth 10/01/19 06/08/20 dental paste Irritation albuterol sulfate 90 mcg/actuation 2 inh inhalation Q4-6H PRN Wheezing 06/02/20 06/08/20 breath activated powder inhaler,sensor ascorbic acid (vitamin C) 1,000 mg 1 g PO DAILY 06/02/20 06/08/20 tablet (Vitamin C) celecoxib 200 mg capsule (Celebrex) 200 mg PO BID 06/02/20 06/08/20 omega-3 fatty acids-vitamin E 1 cap QAM 06/02/20 06/08/20 1,000 mg capsule Allergies Allergy/AdvReac Type Severity Reaction Status Date / Time No Known Allergies Allergy Unknown Verified 06/08/20 07:23 Review of Systems Review of Systems: CONSTITUTIONAL: Denies fever, chills, or sweats. EYES: Denies visual changes, redness, or discharge. ENT: Denies rhinorrhea, congestion, sore throat, or otalgia. CARDIOVASCULAR: Denies chest pain, palpitations, or edema. RESPIRATORY: Denies cough or dyspnea. GASTROINTESTINAL: Denies abdominal pain, nausea, vomiting, or diarrhea. GENITOURINARY: Denies dysuria or hematuria. SKIN: Denies rash or itching. MUSCULOSKELETAL: Denies back pain, joint pain, or myalgia. NEUROLOGIC: Denies headache, numbness, dizziness. PSYCHIATRIC: Denies anxiety or depression. All systems reviewed & are unremarkable except as noted in HPI and below PMFSH Past Medical History Medical History Asthma BPH (benign prostatic hyperplasia) History of skin cancer Hypertension Osteoarthritis TMJ (temporomandibular joint syndrome) Surgical History Surgical History History of tonsillectomy Hx of total knee arthroplasty Social History Social History Smoking status: Never smoker Second hand tobacco smoke exposure: No Alcohol intake: current Drinks per week: 2 Substance use: never Substance use type: does not use Gender identity (if verbalized by the patient): Male Spiritual care concerns: No Exam Narrative: GENERAL: Well-appearing, well-nourished, and in no acute distress. HEAD: Normocephalic, atraumatic. EYES: PERRLA and EOMI. ENT: Nares clear, no rhinorrhea or epistaxis. Mucous membranes moist. NECK: Supple. No masses. No JVD EXTREMITIES: Normal range of motion. No edema. SKIN: Warm, dry, no
[2021-07-11 19:20] VITALS: BP 142/86; PULSE 72; RESP 18; O2SAT 99
== END 2021-07-11 19:48 | disposition home or self-care (01) ==
PROVIDERS: Emergency Provider Emergency Medicine; PCP Nurse Practitioner Adult Health
DX: G51.0 Bell's palsy (principal); J45.909 Unspecified asthma, uncomplicated; N40.0 Benign prostatic hyperplasia without lower urinary tract symptoms; I10 Essential (primary) hypertension; M19.90 Unspecified osteoarthritis, unspecified site
CPT/HCPCS: 71045; 93005; 99284

== ENCOUNTER 2022-04-17 10:26 | Outpatient (CLI) | payer MEDICARE, OTHER, SELFPAY ==
--- NOTE | ~2022-04-17 | US_ITS ---
EXAMINATION: US scrotum doppler DATE: 04/17/2022 11:21 INDICATION: Swelling of scrotum. TECHNIQUE: Grayscale and Doppler ultrasound images of the testes were obtained. COMPARISON: None. FINDINGS: The right testis measures 4.1 x 3.4 x 3.0 cm. The left testis measures 4.7 x 2.7 x 3.9 cm. There is cystic dilatation of the rete testes bilaterally. There is normal vascular flow to both test es. The right epididymis demonstrate cysts measuring up to 1.1 cm. The left epididymis demonstrates c ysts measuring up to 1.8 cm. There is a moderate-sized right hydrocele. There is a 5 mm scrotolith on the right. There is a small left hydrocele. No varicocele. IMPRESSION: 1. Moderate-sized right hydrocele and small left hydrocele. Reviewed, dictated and finalized at location A.
== END 2022-04-17 10:27 | disposition home or self-care (01) ==
PROVIDERS: PCP Family Medicine; Visit Provider Family Medicine
DX: N50.89 Other specified disorders of the male genital organs (principal); N43.3 Hydrocele, unspecified
CPT/HCPCS: 76870; 93976

== ENCOUNTER 2023-05-16 10:09 | Outpatient (CLI) | payer MEDICARE, OTHER, SELFPAY ==
--- NOTE | ~2023-05-16 | CT_ITS ---
EXAMINATION: CT sinus wo con DATE: 05/16/2023 10:21 INDICATION: Acquired deformity of nose. Sinusitis. TECHNIQUE: Computed tomography (CT) of the facial bones and maxillofacial region was performed withou t intravenous contrast. Automated exposure control and iterative reconstruction technique were employ ed. The dose-length product was 256.12 mGy-cm. COMPARISON: None. FINDINGS: There is mild mucosal thickening in the frontal recesses, ethmoid sinuses, sphenoid sinuses , and maxillary sinuses. There are bilateral Shanique cells. There is rightward deviation of anterior n mildred septum. There is leftward deviation of posterior nasal septum. Right ostiomeatal unit is patent. There is occlusion of left ostiomeatal unit at the infundibulum. There is severe osteoarthritis of r ight temporomandibular joint. IMPRESSION: 1. Mild mucosal thickening in the paranasal sinuses with occlusion of left ostiomeatal unit. 2. Rightward deviation of anterior nasal septum and leftward deviation of posterior nasal septum. Reviewed, dictated and finalized at location A. IMPRESSION: 1. Mild mucosal thickening in the paranasal sinuses with occlusion of left osti omeatal unit. 2. Rightward deviation of anterior nasal septum and leftward deviation of poste rior nasal septum.
== END 2023-05-16 10:10 ==
LOC: MICIMG 10:09
PROVIDERS: PCP Family Medicine; Visit Provider Otolaryngology
DX: M95.0 Acquired deformity of nose (principal); J34.2 Deviated nasal septum
CPT/HCPCS: 70486

== ENCOUNTER 2024-07-16 06:56 | Outpatient (CLI) | payer MEDICARE, OTHER, SELFPAY ==
--- NOTE | ~2024-07-16 | MR_ITS ---
MRI of the left shoulder Technique: Axial proton-density fat-sat images, coronal proton density fat-sat and T2 fat-sat images, and sagittal T1-weighted and T2 fat-sat images were acquired. Clinical History: Pain Findings: There is advanced AC joint degenerative change. There are small subacromial spur with small amount of fluid in the joint space. Coracoclavicular, coracoacromial, and coracohumeral ligaments ar e intact. Supraspinatus and infraspinatus tendons are intact without partial or full-thickness tear. There is m oderate to advanced tendinosis. Subscapularis tendon is intact with mild tendinosis. Tendon of long h ead of the biceps is intact. There is superior labral tear extending to the anterosuperior portion. There is minimal degenerative change of the glenohumeral joint. Inferior glenohumeral ligament is int act. There is minimal glenohumeral joint effusion. No fluid distention of the subacromial/subdeltoid bursa. No muscle atrophy or edema. Impression: Extensive rotator cuff tendinosis without partial or full-thickness tear. Superior labral tear extending to the anterosuperior portion. Advanced AC joint degenerative change. Minimal glenohumeral joint degenerative change. Reviewed, dictated and finalized at location . Impression: Extensive rotator cuff tendinosis without partial or full-thickness tear. Superior labral tear extending to the anterosuperior portion. Advanced AC joint degenerative change. Minimal glenohumeral joint degenerative change.
== END 2024-07-16 06:57 | disposition home or self-care (01) ==
LOC: MICIMG 06:58
PROVIDERS: PCP Physician Assistant; Visit Provider Physician Assistant Surgical
DX: M75.32 Calcific tendinitis of left shoulder (principal); S43.432A Superior glenoid labrum lesion of left shoulder, initial encounter; M19.012 Primary osteoarthritis, left shoulder; X58.XXXA Exposure to other specified factors, initial encounter
CPT/HCPCS: 73221

== ENCOUNTER 2024-07-30 00:33 | Day surgery (SDC) | payer MEDICARE, OTHER, SELFPAY ==
[2024-07-17 11:38] VITALS: BMI 25.1
[2024-07-30 07:22] VITALS: BP 168/81; PULSE 92; RESP 19; TEMP 36.6; O2SAT 99
[2024-07-30] MEDS: LACTATED RINGERS 1,000 ML 150 ML IV CONT (07:30)
--- NOTE | 2024-07-30 07:37 | WPDANESEPPF ---
Anes - Initial Pre Proc Eval Procedure: Operation Date: 07/30/24 08:30 Proposed Procedures p Screening Colonoscopy - Kaiden Biswas MD Date/Time: 07/30/24 07:37 Surgeon: Kaiden Biswas MD Pre Op Diagnosis: Encounter for screening for malignant neoplasm of Patient Data Age: 78 Gender: M Height: 1.78 m Weight: 77.3 kg Last Vital Signs Temp 36.6 C 07/30/24 07:22 Pulse 92 07/30/24 07:22 Resp 19 07/30/24 07:22 BP 168/81 H 07/30/24 07:22 Pulse Ox 99 07/30/24 07:22 O2 Del Method Room Air 07/30/24 07:22 Allergies Allergy/AdvReac Type Severity Reaction Status Date / Time No Known Allergies Allergy Unknown Verified 07/30/24 07:20 Home Medications ?Medication ?Instructions ?Recorded ?Confirmed ?Type finasteride 5 mg tablet 5 mg PO QAM 10/01/19 07/30/24 History fluticasone propionate 250 1 inh inhalation QAM 10/01/19 07/30/24 History mcg/actuation blister powder for inhalation (Flovent Diskus) hydrocortisone 2.5 % topical cream 1 applic RECTAL DAILY PRN 10/01/19 07/30/24 History with perineal applicator Hemorrhoids (Proctosol HC) montelukast 10 mg tablet 10 mg PO HS 10/01/19 07/30/24 History sildenafil 50 mg tablet 50 mg PO DAILY PRN Erectile 10/01/19 07/17/24 History Dysfunction telmisartan 40 mg tablet (Micardis) 40 mg PO HS 10/01/19 07/30/24 History triamcinolone acetonide 0.1 % 1 applic dental DAILY PRN Mouth 10/01/19 07/17/24 History dental paste Irritation albuterol sulfate 90 mcg/actuation 2 inh inhalation Q4-6H PRN Wheezing 06/02/20 07/17/24 History breath activated powder inhaler,sensor ascorbic acid (vitamin C) 1,000 mg 1 g PO DAILY 06/02/20 07/30/24 History tablet (Vitamin C) celecoxib 200 mg capsule (Celebrex) 200 mg PO BID 06/02/20 07/30/24 History valacyclovir 1 gram tablet 1,000 mg PO TID PRN cold sores 07/17/24 07/17/24 History (Valtrex) Patient hx anesthesia problems: none Family hx anesthesia problems: none Results Review: All pre-operative results and documents have been reviewed as part of the pre-operative evaluation. [facility] Past Medical History Medical History History of skin cancer Osteoarthritis BPH (benign prostatic hyperplasia) Asthma Hypertension TMJ (temporomandibular joint syndrome) Surgical History Surgical History Hx of total knee arthroplasty History of tonsillectomy Social History Social History Smoking status: Never smoker Second hand tobacco smoke exposure: No Alcohol intake: current Drinks per week: 2 Substance use: never Substance use type: does not use Living arrangements: with family Occupation/Education: retired Gender identity (if verbalized by the patient): Male Spiritual care concerns: No Anes - Eval Final PreProcedure Day of Procedure 07/30/24 07:37 Patient weight: normal Heart: regular rate and rhythm Lungs: clear to auscultation Airway: Mallampati scale class II Neurological: alert and oriented Last oral intake: >/= 8 hours ASA classification: III Emergent: no Anesthetic plan: proceed Anesthesia type and monitoring: general GIVS and standard monitoring Results Review: All pre-operative results and documents have been reviewed as part of the pre-operative evaluation. Informed Consent: The patient's anesthetic plan and its attendant risks and benefits were discussed with the patient/family/POA. Questions were solicited and answers provided to the satisfaction of the patient/family/POA.
--- NOTE | 2024-07-30 08:30 | PM.IMHP ---
H&P: HPI History of Present Illness Date/Time: 07/30/24 08:30 Chief Complaint: Screening colonoscopy Narrative: This is the patient's 3rd colonoscopy. There are no GI symptoms and there is no family history of colorectal cancer. Review of Systems Review of Systems: All systems reviewed & are unremarkable except as noted in HPI and below PMFSH Past Medical History Medical History History of skin cancer Osteoarthritis BPH (benign prostatic hyperplasia) Asthma Hypertension TMJ (temporomandibular joint syndrome) Surgical History Surgical History Hx of total knee arthroplasty History of tonsillectomy Social History Social History Smoking status: Never smoker Second hand tobacco smoke exposure: No Alcohol intake: current Drinks per week: 2 Substance use: never Substance use type: does not use Living arrangements: with family Occupation/Education: retired Gender identity (if verbalized by the patient): Male Spiritual care concerns: No Meds Home Medications and Allergies Home Medications ?Medication ?Instructions ?Recorded ?Confirmed ?Type finasteride 5 mg tablet 5 mg PO QAM 10/01/19 07/30/24 History fluticasone propionate 250 1 inh inhalation QAM 10/01/19 07/30/24 History mcg/actuation blister powder for inhalation (Flovent Diskus) hydrocortisone 2.5 % topical cream 1 applic RECTAL DAILY PRN 10/01/19 07/30/24 History with perineal applicator Hemorrhoids (Proctosol HC) montelukast 10 mg tablet 10 mg PO HS 10/01/19 07/30/24 History sildenafil 50 mg tablet 50 mg PO DAILY PRN Erectile 10/01/19 07/17/24 History Dysfunction telmisartan 40 mg tablet (Micardis) 40 mg PO HS 10/01/19 07/30/24 History triamcinolone acetonide 0.1 % 1 applic dental DAILY PRN Mouth 10/01/19 07/17/24 History dental paste Irritation albuterol sulfate 90 mcg/actuation 2 inh inhalation Q4-6H PRN Wheezing 06/02/20 07/17/24 History breath activated powder inhaler,sensor ascorbic acid (vitamin C) 1,000 mg 1 g PO DAILY 06/02/20 07/30/24 History tablet (Vitamin C) celecoxib 200 mg capsule (Celebrex) 200 mg PO BID 06/02/20 07/30/24 History valacyclovir 1 gram tablet 1,000 mg PO TID PRN cold sores 07/17/24 07/17/24 History (Valtrex) Allergies Allergy/AdvReac Type Severity Reaction Status Date / Time No Known Allergies Allergy Unknown Verified 07/30/24 07:20 Vital Signs Vital Signs - 24 hr 07/30/24 07:22 Temperature 97.9 F Pulse Rate 92 Respiratory Rate 19 Blood Pressure 168/81 H Pulse Oximetry 99 Oxygen Delivery Room Air Exam Const: General: cooperative and healthy appearing Resp: Effort & Inspection: normal respiratory effort and able to speak in complete sentences Auscultation: clear to auscultation bilaterally Cardio: Rate: regular rate Rhythm: regular rhythm GI: Inspection: normal to inspection GI Palp: No No hepatosplenomegaly present Auscultation: normal bowel sounds Rectal Exam: deferred Skin: General skin exam: normal color Psych: Appearance: grossly normal Mental Status: mental status grossly normal Assessment and Plan Assessment and plan (1) Encounter for screening colonoscopy: Code(s): Z12.11 - Encounter for screening for malignant neoplasm of colon Status: Acute Assessment and Plan: The patient is deemed a good candidate for the procedure. Consent signed. Will proceed.
[2024-07-30] MEDS: SIMETHICONE ORAL SUSPENSION 20 MG/0.3 ML 30 ML BOTTLE 0.6 ML IRRIGATION (08:48)
[2024-07-30 09:01] VITALS: BP 154/91; PULSE 89; RESP 19; O2SAT 100
[2024-07-30 09:11] VITALS: BP 163/91; PULSE 71; RESP 21; O2SAT 100
[2024-07-30 09:21] VITALS: BP 167/83; PULSE 73; RESP 19; O2SAT 100
== END 2024-07-30 09:34 | disposition home or self-care (01) ==
PROVIDERS: PCP Physician Assistant; Referring Provider Physician Assistant; Visit Provider Internal Medicine Gastroenterology
PROC: 0DJD8ZZ Inspection of Lower Intestinal Tract, Via Natural or Artificial Opening Endoscopic (ICD-10-PCS; CPT 45378; principal; 2024-07-30 08:30)
DX: Z12.11 Encounter for screening for malignant neoplasm of colon (principal); K64.8 Other hemorrhoids; K57.30 Diverticulosis of large intestine without perforation or abscess without bleeding; I10 Essential (primary) hypertension; J45.909 Unspecified asthma, uncomplicated; N40.0 Benign prostatic hyperplasia without lower urinary tract symptoms; M26.609 Unspecified temporomandibular joint disorder, unspecified side; M19.90 Unspecified osteoarthritis, unspecified site; Z79.51 Long term (current) use of inhaled steroids; Z79.1 Long term (current) use of non-steroidal anti-inflammatories (NSAID); Z98.890 Other specified postprocedural states; Z85.828 Personal history of other malignant neoplasm of skin
CPT/HCPCS: G0105; J2003; J2704; J7120